=== PATIENT | male | born 1985 | race Caucasian/White ===

== ENCOUNTER 2017-06-26 20:44 | Emergency (ER) | payer OTHER ==
[~2017-06-26] VITALS: Ht 177.8 cm; Wt 64.0 kg
[2017-06-26 20:48] VITALS: Ht 177.8 cm; Wt 64.0 kg
[2017-06-26] MEDS ORDERED: LORAZEPAM 2 MG INJ IM ONE (22:30)
[2017-06-26] MEDS ORDERED: HALOPERIDOL 5 MG INJ IM ONE (22:30)
[2017-06-26 23:00] LABS: BASOPHILS % 0.4 % (0.0-2.0); EOSINOPHILS % 0.1 % (0.0-7.0); HEMATOCRIT 48.6 % (42.0-52.0); HEMOGLOBIN 16.4 g/dl (14.0-18.0); LYMPHOCYTES # 1.5 10^3/ul (0.8-2.9); LYMPHOCYTES % 13.8 % (15.0-51.0); MEAN CORPUSCULAR HEMOGLOBIN 30.7 pg (29.0-33.0); MEAN CORPUSCULAR HGB CONC 33.7 g/dl (32.0-37.0); MEAN PLATELET VOLUME 9.8 fl (7.4-10.4); MONOCYTE # 0.8 10^3/ul (0.3-0.9); MONOCYTES % 6.9 % (0.0-11.0); NEUTROPHIL # 8.6 10^3/ul (1.6-7.5); NEUTROPHILS % 78.3 % (39.0-77.0); PLATELET COUNT 255 10^3/UL (140-415); RED BLOOD COUNT 5.34 10^6/ul (4.70-6.10); RED CELL DISTRIBUTION WIDTH 12.1 % (11.5-14.5)
[2017-06-26 23:19] LABS: ADD UMIC YES; UR ASCORBIC ACID NEGATIVE (NEGATIVE); UR BILIRUBIN (Dip) NEGATIVE (NEGATIVE); UR BLOOD (Dip) 1+ mg/dL (NEGATIVE); UR CLARITY SLIGHTLY CLOUDY (CLEAR); UR COLOR AMBER (YELLOW); UR GLUCOSE (Dip) NEGATIVE (NEGATIVE); UR KETONES (Dip) 1+ mg/dL (NEGATIVE); UR LEUKOCYTE ESTERASE (Dip) NEGATIVE Leu/ul (NEGATIVE); UR MUCUS MANY /HPF (NONE SEEN); UR NITRITE (Dip) NEGATIVE (NEGATIVE); UR RBC 14 /HPF (0-5); UR SPECIFIC GRAVITY (Dip) 1.031 (1.003-1.030); UR TOTAL PROTEIN (Dip) 2+ mg/dl (NEGATIVE); UR UROBILINOGEN (Dip) 1+ mg/dL (NEGATIVE)
[2017-06-26 23:22] LABS: ALANINE AMINOTRANSFERASE 55 IU/L (13-69); ALBUMIN 5.5 g/dl (3.3-4.9); ALBUMIN/GLOBULIN RATIO 1.44; ALKALINE PHOSPHATASE 105 IU/L (42-121); ANION GAP 20 (8-16); ASPARTATE AMINO TRANSFERASE 47 IU/L (15-46); BILIRUBIN,INDIRECT 1.2 mg/dl (0-1.1); BILIRUBIN,TOTAL 1.2 mg/dl (0.2-1.3); BLOOD UREA NITROGEN 20 mg/dl (7-20); CALCIUM 10.1 mg/dl (8.4-10.2); CARBON DIOXIDE 28 mmol/L (21-31); CHLORIDE 99 mmol/L (97-110); CREATININE 1.18 mg/dl (0.61-1.24); GLUCOSE 75 mg/dl (70-220); POTASSIUM 3.3 mmol/L (3.5-5.1); SODIUM 144 mmol/L (135-144); TOTAL PROTEIN 9.3 g/dl (6.1-8.1)
[2017-06-27 00:01] LABS: ACETAMINOPHEN < 10.0 ug/ml (10.0-30.0); BARBITURATES Negative (NEGATIVE); BENZODIAZEPINES Negative (NEGATIVE); CANNABINOIDS Positive (NEGATIVE); COCAINE Negative (NEGATIVE); ETHANOL < 10.0 mg/dl; SALICYLATE < 1.0 mg/dl (5.0-30.0)
[2017-06-27 00:02] LABS: OPIATES Negative (NEGATIVE)
[2017-06-27] MEDS ORDERED: POTASSIUM CHLORIDE (SR) 20 MEQ TAB PO ONE (00:02)
--- NOTE | 2017-06-27 00:22 | PSY ---
Date/Time of Note Date/Time of Note DATE: 06/27/17 TIME: 00:17 Psychiatric Subjective Eval Consent Pt consented to telemedicine: Yes Subjective Evaluation Patient location: emergency Chief Complaint: requesting to see a psychiatrist due mental issues- schizophrenia , anxiety Allergies: Coded Allergies: No Known Allergy (Unverified , 06/26/17) Psychiatric Objective Eval Mental Status Examination: Laboratory Results Laboratory Tests Test 06/26/17 22:30 White Blood Count 11.010^3/ul Red Blood Count 5.3410^6/ul Hemoglobin 16.4g/dl Hematocrit 48.6% Mean Corpuscular Volume 91.0fl Mean Corpuscular Hemoglobin 30.7pg Mean Corpuscular Hemoglobin Concent 33.7g/dl Red Cell Distribution Width 12.1% Platelet Count 60665^3/UL Mean Platelet Volume 9.8fl Neutrophils % 78.3% Lymphocytes % 13.8% Monocytes % 6.9% Eosinophils % 0.1% Basophils % 0.4% Nucleated Red Blood Cells % 0.0/100WBC Neutrophils # 8.610^3/ul Lymphocytes # 1.510^3/ul Monocytes # 0.810^3/ul Eosinophils # 0.010^3/ul Basophils # 0.010^3/ul Nucleated Red Blood Cells # 0.010^3/ul Urine Color ÁNGEL Urine Clarity SLIGHTLY CLOUDY Urine pH 5.0 Urine Specific [place] 1.031 Urine Ketones 1+mg/dL Urine Nitrite NEGATIVEmg/dL Urine Bilirubin NEGATIVEmg/dL Urine Urobilinogen 1+mg/dL Urine Leukocyte Esterase NEGATIVELeu/ul Urine Microscopic RBC 14/HPF Urine Microscopic WBC 3/HPF Urine Mucus MANY/HPF Urine Hemoglobin 1+mg/dL Urine Glucose NEGATIVEmg/dL Urine Total Protein 2+mg/dl Sodium Level 144mmol/L Potassium Level 3.3mmol/L Chloride Level 99mmol/L Carbon Dioxide Level 28mmol/L Anion Gap 20 Blood Urea Nitrogen 20mg/dl Creatinine 1.18mg/dl Glucose Level 75mg/dl Calcium Level 10.1mg/dl Total Bilirubin 1.2mg/dl Direct Bilirubin 0.00mg/dl Indirect Bilirubin 1.2mg/dl Aspartate Amino Transf (AST/SGOT) 47IU/L Alanine Aminotransferase (ALT/SGPT) 55IU/L Alkaline Phosphatase 105IU/L Total Protein 9.3g/dl Albumin 5.5g/dl Globulin 3.80g/dl Albumin/Globulin Ratio 1.44 Salicylates Level < 1.0mg/dl Urine Opiates Screen Negative Acetaminophen Level < 10.0ug/ml Urine Barbiturates Negative Urine Amphetamines Screen POSITIVE Urine Benzodiazepines Screen Negative Urine Cocaine Screen Negative Urine Cannabinoids Positive Ethyl Alcohol Level < 10.0mg/dl Assessment Additional comments: IDENTIFYING INFORMATION: 32 year old Male patient who is currently located at the hospital and for whom psychiatric consultation was requested. SOURCES OF INFORMATION: The patient who appears to be somewhat unreliable and the medical records; the nursing staff. CHIEF COMPLAINT: "I need to get to the [facility], I am schizophrenic". HISTORY OF PRESENT ILLNESS: The patient was interviewed via telemedicine in the presence of and under the supervision of nursing staff of the hospital. The consent to conducting this interview via telemedicine was obtained by the nursing staff at the hospital. JUSTIN Vences reports that the patient presented with AH, anxiety and not being safe. Denied having SI, HI. Patient was agitated while at the ER and had to be taken to his bed by 4 security officers/staff after he tried to elope the emergency room. The patient was difficult to interview due to psychosis. The patient reports that he is having AH telling him bad words, and has racing thoughts. Reports that someone is out to get him and he would defend himself against them. Denies having SI, HI. The patient denies using alcohol heavily or regularly. The patient denies using any other substances. In terms of past psychiatric history, the patient reports having a history of 2 past psychiatric hospitalizations. The patient reports having a history of past suicide attempts. Past medication trials: zyprexa, seroquel, sertraline. PAST MEDICAL HISTORY: none. CURRENT MEDICATIONS: none. ALLERGIES TO MEDICATIONS: NKDA. SOCIAL HISTORY: homeless, single, 1 child; not employed. LABORATORY TESTS: CMP with potassium of 3.3, indirect bilirubin 1.2, AST 47, albumin 5.5, UDS positive for amphetamines, cannabinoids, alcohol was not detected. REVIEW OF SYSTEMS: Constitutional (e.g., fever, weight loss): negative; Eyes, Ears, Nose, Mouth, Throat: negative; Cardiovascular: negative; Respiratory: negative; Gastrointestinal: negative; Genitourinary: negative; Musculoskeletal: negative; Integumentary (skin and/or breast): negative; Neurological: negative; Psychiatric: as per HPI; Endocrine: negative; Hematologic/Lymphatic: negative; Allergic/Immunologic: negative. MENTAL STATUS EXAMINATION: General Appearance and Behavior: Agitated, appears to be responding to internal stimuli, cooperative with part of the interview, distant with the current interviewer, makes poor eye contact, poorly groomed, increased psychomotor activity, no abnormal movements noted. Speech: Normal rate, regular rhythm, normal latency, normal volume, decreased amount. Flow of thought: tangential, illogical, not goal-directed. Content of thought: + auditory hallucinations, + paranoid delusions, no visual hallucinations, denies having suicidal ideation; no homicidal ideation, positive for violent ideation against his perceived persecutors. Mood: "OK". Affect: agitated, angry, flat, decreased range of reactivity. Attention: normal based on the interview. Insight: poor. Judgment: poor. Memory: normal based on the interview. Sensorium: alert and oriented to person, June 2017, place. ASSESSMENT: The patient's presentation and history are consistent with the diagnosis of unspecified psychotic disorder, stimulant use disorder. The patient presents with an exacerbation of psychosis in the context of medication noncompliance, psychosocial stressors and substance use. Ramah I: uunspecified psychotic disorder, stimulant use disorder. Ramah II: Deferred. Ramah III: see PMH. Ramah IV: social stressors. Ramah V: GAF: 10. PLAN: - Medication management: Would start zyprexa 5 mg po bid, first dose tomorrow morning after 8 AM. Would start Zyprexa 10 mg IM PRN agitation [id number]; 3rd dose may be administered no earlier than 4 hours after 2nd dose); do not exceed 30 mg/24 hours; do not administer with IM benzodiazepines. First dose to be administered now because the patient is agitated. Will defer to the inpatient psychiatry team for other medication changes. - Labs: No other laboratory tests are needed at this time. - Psychotherapy: Provided supportive psychotherapy and psychoeducation. - Disposition: Would recommend involuntary admission to the inpatient psychiatric unit given the severity of the patient's psychiatric condition and the fact that the patient is an imminent danger to self and/or others so long as the patient has been cleared medically for admission to psychiatry. Inpatient psychiatric admission is at this time the least restrictive environment where the patient can receive the psychiatric care that is needed. Would place on suicide precautions. The patient fulfills criteria for being placed on an involuntary hold for being a danger to self and others due to a psychiatric disorder. Discussed about the above plan with Dr. Yu. ELI GLORIA MD Jun 27, 2017 00:22
[2017-06-27] MEDS ORDERED: OLANZAPINE 10 MG VIAL IM ONE (00:30)
[2017-06-27] MEDS ORDERED: LORAZEPAM 2 MG INJ IM ONE ×2 (00:30→01:00)
--- NOTE | 2017-06-27 00:35 | ERA ---
ER Documentation Chief Complaint Date/Time DATE: 06/27/17 TIME: 00:32 Chief Complaint requesting to see a psychiatrist due mental issues- schizophrenia , anxiety HPI This is a 32-year-old male who presents to the ER for evaluation of anxiety, agitation. He states that he voices and states that he wants to see a psychiatrist and be placed in a mental hospital. He is denying any homicidal ideation but does state that he has had suicidal ideation in the past he denies any aggravating or relieving factors for his symptoms ROS All systems reviewed and are negative except as per history of present illness. Allergies Allergies: Coded Allergies: No Known Allergy (Unverified , 06/26/17) PMhx/Soc History of Surgery: No Anesthesia Reaction: No Hx Neurological Disorder: No Hx Respiratory Disorders: No Hx Cardiac Disorders: No Hx Psychiatric Problems: Yes (Depression, Anxiety) Hx Miscellaneous Medical Probl: No Hx Alcohol Use: Yes Hx Substance Use: Yes Hx Tobacco Use: No Smoking Status: Never smoker Physical Exam Vitals Vital Signs Date Time Temp Pulse Resp B/P Pulse Ox O2 Delivery O2 Flow Rate FiO2 06/26/17 20:48 98.2 110 20 148/91 98 Physical Exam Const: Disheveled appearance Head: Atraumatic Eyes: Normal Conjunctiva ENT: Normal External Ears, Nose and Mouth. Neck: Full range of motion..~ No meningismus. Resp: Clear to auscultation bilaterally Cardio: Regular rate and rhythm, no murmurs Abd: Soft, non tender, non distended. Normal bowel sounds Skin: No petechiae or rashes Back: No midline or flank tenderness Ext: No cyanosis, or edema Neur: Awake and alert Psych: Agitated affect Result Diagram: 06/26/17222906/26/172229 Results 24 hrs Laboratory Tests Test 06/26/17 22:30 White Blood Count 11.010^3/ul Red Blood Count 5.3410^6/ul Hemoglobin 16.4g/dl Hematocrit 48.6% Mean Corpuscular Volume 91.0fl Mean Corpuscular Hemoglobin 30.7pg Mean Corpuscular Hemoglobin Concent 33.7g/dl Red Cell Distribution Width 12.1% Platelet Count 34005^3/UL Mean Platelet Volume 9.8fl Neutrophils % 78.3% Lymphocytes % 13.8% Monocytes % 6.9% Eosinophils % 0.1% Basophils % 0.4% Nucleated Red Blood Cells % 0.0/100WBC Neutrophils # 8.610^3/ul Lymphocytes # 1.510^3/ul Monocytes # 0.810^3/ul Eosinophils # 0.010^3/ul Basophils # 0.010^3/ul Nucleated Red Blood Cells # 0.010^3/ul Urine Color ÁNGEL Urine Clarity SLIGHTLY CLOUDY Urine pH 5.0 Urine Specific [place] 1.031 Urine Ketones 1+mg/dL Urine Nitrite NEGATIVEmg/dL Urine Bilirubin NEGATIVEmg/dL Urine Urobilinogen 1+mg/dL Urine Leukocyte Esterase NEGATIVELeu/ul Urine Microscopic RBC 14/HPF Urine Microscopic WBC 3/HPF Urine Mucus MANY/HPF Urine Hemoglobin 1+mg/dL Urine Glucose NEGATIVEmg/dL Urine Total Protein 2+mg/dl Sodium Level 144mmol/L Potassium Level 3.3mmol/L Chloride Level 99mmol/L Carbon Dioxide Level 28mmol/L Anion Gap 20 Blood Urea Nitrogen 20mg/dl Creatinine 1.18mg/dl Glucose Level 75mg/dl Calcium Level 10.1mg/dl Total Bilirubin 1.2mg/dl Direct Bilirubin 0.00mg/dl Indirect Bilirubin 1.2mg/dl Aspartate Amino Transf (AST/SGOT) 47IU/L Alanine Aminotransferase (ALT/SGPT) 55IU/L Alkaline Phosphatase 105IU/L Total Protein 9.3g/dl Albumin 5.5g/dl Globulin 3.80g/dl Albumin/Globulin Ratio 1.44 Salicylates Level < 1.0mg/dl Urine Opiates Screen Negative Acetaminophen Level < 10.0ug/ml Urine Barbiturates Negative Urine Amphetamines Screen POSITIVE Urine Benzodiazepines Screen Negative Urine Cocaine Screen Negative Urine Cannabinoids Positive Ethyl Alcohol Level < 10.0mg/dl Current Medications Medications (Trade) Dose Ordered Sig/Ajay Route PRN Reason Start Time Stop Time Status Last Admin Dose Admin Haloperidol (Haldol) 5 mg ONCE ONCE IM 06/26/17 22:30 06/26/17 22:30 DC Lorazepam (Ativan) 2 mg ONCE ONCE IM 06/26/17 22:30 06/26/17 22:30 DC Potassium Chloride (Klor-Con 20) 20 meq ONCE ONCE PO 06/27/17 00:02 06/27/17 00:11 DC Lorazepam (Ativan) 2 mg ONCE ONCE IM 06/27/17 00:30 06/27/17 00:31 DC Olanzapine (Zyprexa) 10 mg ONCE ONCE IM 06/27/17 00:30 06/27/17 00:31 DC Procedures/MDM This 32-year-old male presents to the ER for evaluation of agitation. He states that he was hearing voices and wants to go to a mental institution. The patient was cleared medically and was seen by tele-psych physician who recommends patient be placed on a hold. The patient was given 10 mg of Zyprexa will be out in the emergency room until he is able to be seen by PMNRT Smoking Cessation Therapy: Pt. was lectured for greater than 3 minutes on the health risks of continued smoking and the benefits of cessation. Departure Diagnosis: Primary Impression: Agitation Additional Impressions: Psychological disorder Amphetamine abuse Tobacco abuse Tobacco abuse counseling Condition: MISAEL Olivier DO Jun 27, 2017 00:35
[2017-06-27] MEDS ORDERED: LORAZEPAM 2 MG INJ ONE ×2 (00:39→00:48)
[2017-06-27] MEDS ORDERED: DIPHENHYDRAMINE 50 MG INJ ONE (00:48)
[2017-06-27] MEDS ORDERED: DIPHENHYDRAMINE 50 MG INJ IM ONE (01:00)
[2017-06-27] MEDS ORDERED: LORAZEPAM 1 MG TAB PO PRN (07:00)
[2017-06-27] MEDS ORDERED: OLANZAPINE (ODT) 5 MG TAB ODT ONE (09:00)
--- NOTE | 2017-06-27 13:44 | EN ---
Date/Time of Note Date/Time of Note DATE: 06/27/17 TIME: 13:42 ER Progress Note Observation Note: Time: 8 hours Family Hx: Noncontributory Evaluation: Multiple exams showed improving patient's symptoms are stable. He is still awaiting PET evaluation for 5150 hold. I prescribed him Zyprexa 5 mg twice daily while in the ED per psychiatry recommendations. AGAPITO MKCEON MD Jun 27, 2017 13:43
[2017-06-28 07:11] VITALS: TEMP 98
[2017-06-28 11:16] VITALS: BP 142/77; PULSE 68; RESP 18
== END 2017-06-28 11:22 ==
LOC: E/R 20:44
DX: R45.1 Restlessness and agitation (principal); F15.10 Other stimulant abuse, uncomplicated; F17.210 Nicotine dependence, cigarettes, uncomplicated; Z71.6 Tobacco abuse counseling
CPT/HCPCS: 36415; 80053; 80306; 80307; 81001; 85025; 96372; J1200; J2060; Z7502; Z7610; J1630